=== PATIENT | female | born 1995 | race American Indian/Alaskan Native ===

== ENCOUNTER 2018-07-28 20:29 | Emergency (ER) | payer SELFPAY | END 2018-07-28 21:20 | disposition left against medical advice (07) | LOC: ED 20:29 ==

== ENCOUNTER 2018-08-03 18:41 | Emergency (ER) | payer MEDICAID ==
[2018-08-03 19:30] LABS: Bilirubin,Urine NEG (Negative); Blood,Urine NEG (Negative); Color,Urine Yellow (Yellow); HCG Qualitative,Urine Positive (Negative); Mucus,Urine FEW /HPF; Protein,Urine <15 mg/dL mg/dL (Negative); Urobilinogen,Urine < 2.0 mg/dL (<2.0)
--- NOTE | 2018-08-03 21:20 | Emergency Department Report ---
HPI - General Chief Complaint: Abdominal Pain Time Seen by Provider: 08/03/18 20:29 - HPI HPI: Room 4 The patient is a 23-year-old female presenting with a chief complaint of vaginal bleeding and cramping. The patient states she is about 6 weeks' and last night developed vaginal spotting. The patient states today the bleeding increased slightly still was not enough to warrant a maxi pad. Patient states she has lower abdominal cramping Location: Pelvis, genitourinary system Duration: [See above] Quality: Cramping Severity: Moderate Modifying factors: [see above] Context: [see above] Mode of transportation: [not driving] ED Past Medical Hx - Past Medical History Previous Medical History?: No - Surgical History Hx Appendectomy: Yes - Family History Family history: no significant - Social History Smoking Status: Never Smoker Substance Use Type: None (denies illicit drug use) ED Review of Systems ROS: Stated complaint: PREG VAG BLEED Other details as noted in HPI Constitutional: no symptoms reported Eyes: denies: eye pain ENT: denies: throat pain Respiratory: no symptoms reported Cardiovascular: denies: chest pain Endocrine: no symptoms reported Gastrointestinal: abdominal pain Genitourinary: abnormal menses Musculoskeletal: denies: back pain Neurological: denies: headache Physical Exam - Physical Exam Vital Signs: Vital Signs 08/03/18 08/03/18 08/03/18 18:46 20:02 20:16 Temperature 99.1 F Pulse Rate 84 Respiratory 18 Rate Blood Pressure 144/87 128/72 O2 Sat by Pulse 99 100 100 Oximetry Physical Exam: GENERAL: The patient is well-developed well-nourished female lying on stretcher not appearing to be in acute distress. [] HEENT: Normocephalic. Atraumatic. Extraocular motions are intact. Patient has moist mucous membranes. NECK: Supple. Trachea midline CHEST/LUNGS: Clear to auscultation. There is no respiratory distress noted. HEART/CARDIOVASCULAR: Regular. There is no tachycardia. There is no gallop rub or murmur. ABDOMEN: Abdomen is soft, with mild diffuse discomfort to palpation greatest in the lower abdomen. There is no rebound or guarding. Patient has normal bowel sounds. There is no abdominal distention. SKIN: There is no rash. There is no edema. There is no diaphoresis. NEURO: The patient is awake, alert, and oriented. The patient is cooperative. The patient has normal speech MUSCULOSKELETAL: There is no evidence of acute injury. ED Course Vital Signs 08/03/18 08/03/18 08/03/18 18:46 20:02 20:16 Temperature 99.1 F Pulse Rate 84 Respiratory 18 Rate Blood Pressure 144/87 128/72 O2 Sat by Pulse 99 100 100 Oximetry ED Medical Decision Making - Radiology Data Radiology results: report reviewed (pelvic ultrasound), image reviewed (pelvic ultrasound) [facility] [address] [place] [address] Ultrasound Report Signed Patient: RICKY VELASQUEZ MR#: [id number] : 1995 Acct:[id number] Age/Sex: 23 / F ADM Date: 08/03/18 Loc: ED Attending Dr: Ordering Physician: CARTER WEAVER MD Date of Service: 08/03/18 Procedure(s): US OB transvaginal Accession Number(s): [id number] cc: CARTER WEAVER MD FINAL REPORT EXAM: US OB TRANSVAGINAL HISTORY: vaginal bleeding, TECHNIQUE: Real-time sonography was performed of the gravid uterus endovaginally and images are submitted for interpretation. PRIORS: None. FINDINGS: The uterus appears normal and has a grossly normal appearing gestational sac. There is a normal appearing pole measuring 0.21 centimeters for an estimated gestational age of 5 weeks 5 days. A normal-appearing yolk sac is identified. The heart is beating at a rate of 105 beats per minute. Both ovaries are visualized and appear normal. The right ovary measures 4.4 x 3.1 x 3.3 cm and the left measures 2.8 x 1.2 x 2.0 cm. There is a corpus luteal cyst in the right ovary measuring 2.7 x 2.1 x 1.9 cm. IMPRESSION: Single live intrauterine gestation, estimated gestational age 5 weeks 5 days for an estimated confinement of 03/31/2019 Transcribed By: PHYLICIA Dictated By: CASSIUS AMADOR MD Electronically Authenticated By: CASSIUS AMADOR MD Signed Date/Time: 08/03/182216 DD/ 18 TD/TT: 08/03/182218 - Medical Decision Making Patient advised to undergo pelvic rest and bed rest for the next 3 days - Differential Diagnosis threatened , spontaneous , missed Critical care attestation.: If time is entered above; I have spent that time in minutes in the direct care of this critically ill patient, excluding procedure time. ED Disposition Clinical Impression: Threatened Disposition: DC-01 TO HOME OR SELFCARE Is pt being admited?: No Does the pt Need Aspirin: No Condition: Stable Instructions: Abdominal Pain (ED) Additional Instructions: Return to the emergency department immediately should you develop worsening symptoms, fever, inability to tolerate food or liquid or any other concerns. Referrals: your RESEARCH AIDE, [place] [Other] - 3-5 Days Time of Disposition: 22:31
[2018-08-03 21:24] VITALS: BP 121/70
--- NOTE | 2018-08-03 22:16 | Ultrasound Report ---
FINAL REPORT EXAM: US OB <= 14 WEEKS FETUS HISTORY: vaginal bleeding, TECHNIQUE: Real-time sonography was performed of the gravid uterus transabdominally and images are s ubmitted for interpretation. PRIORS: None. FINDINGS: The uterus appears normal and has a grossly normal appearing gestational sac. There is a normal appea ring pole measuring 0.21 centimeters for an estimated gestational age of 5 weeks 5 days. A norm al-appearing yolk sac is identified. The heart is beating at a rate of 105 beats per minute. Both ovaries are visualized and appear normal. The right ovary measures 4.4 x 3.1 x 3.3 cm and the le ft measures 2.8 x 1.2 x 2.0 cm. There is a corpus luteal cyst in the right ovary measuring 2.7 x 2.1 x 1.9 cm. IMPRESSION: Single live intrauterine gestation, estimated gestational age 5 weeks 5 days for an estimated confine ment of 03/31/2019
--- NOTE | 2018-08-03 22:17 | Ultrasound Report ---
FINAL REPORT EXAM: US OB TRANSVAGINAL HISTORY: vaginal bleeding, TECHNIQUE: Real-time sonography was performed of the gravid uterus endovaginally and images are subm itted for interpretation. PRIORS: None. FINDINGS: The uterus appears normal and has a grossly normal appearing gestational sac. There is a normal appea ring pole measuring 0.21 centimeters for an estimated gestational age of 5 weeks 5 days. A norm al-appearing yolk sac is identified. The heart is beating at a rate of 105 beats per minute. Both ovaries are visualized and appear normal. The right ovary measures 4.4 x 3.1 x 3.3 cm and the le ft measures 2.8 x 1.2 x 2.0 cm. There is a corpus luteal cyst in the right ovary measuring 2.7 x 2.1 x 1.9 cm. IMPRESSION: Single live intrauterine gestation, estimated gestational age 5 weeks 5 days for an estimated confine ment of 03/31/2019
== END 2018-08-03 22:40 | disposition home or self-care (01) ==
LOC: ED 18:41
DX: O20.0 Threatened abortion (principal); Z90.49 Acquired absence of other specified parts of digestive tract; Z3A.01 Less than 8 weeks gestation of pregnancy
CPT/HCPCS: 76801; 76817; 81001; 81025